=== PATIENT | female | born 1990 | race Caucasian/White ===

== ENCOUNTER 2018-03-08 13:54 | Emergency (ER) | payer SELFPAY ==
[~2018-03-08] VITALS: Ht 180.3 cm; Wt 103.4 kg
[2018-03-08 14:16] VITALS: Ht 180.3 cm; Wt 103.4 kg
[2018-03-08 17:50] VITALS: BP 112/73
== END 2018-03-08 17:50 | disposition home or self-care (01) ==
LOC: ED 13:54
DX: K52.9 Noninfective gastroenteritis and colitis, unspecified (principal); Z90.49 Acquired absence of other specified parts of digestive tract
CPT/HCPCS: J1885; J3010; Q0162